=== PATIENT | male | born 1955 | race Two or more races ===

== ENCOUNTER 2024-02-09 06:24 | Day surgery (SDC) | payer OTHER, SELFPAY ==
[2024-02-01 09:30] VITALS: BMI 28.9
[2024-02-01 10:38] LABS: Hematocrit 44.3 % (39.0-52.0); Hemoglobin 14.8 g/dL (13.0-18.0); Mean Corp Hgb Conc. 33.4 g/dL (33.0-37.0); Mean Corpuscular Hgb 28.5 pg (27.0-31.0); Mean Corpuscular Volume 85.4 fL (80.0-94.0); Mean Platelet Volume 9.4 fL (7.4-10.4); Platelet Count 236 10^3/uL (130-400); Red Blood Cell Count 5.19 10^6/uL (4.70-6.10); Red Cell Dist. Width 14.4 % (11.5-14.5); White Blood Cell Count 9.5 10^3/uL (4.8-10.8)
[2024-02-01 10:55] LABS: Blood Urea Nitrogen 49 mg/dl (9-20); Carbon Dioxide 23 mmol/L (22-30); Chloride 104 mmol/L (98-107); Estimated Creatinine Clearance 30 ml/min; Glucose 141 mg/dl (70-99); Potassium 4.3 mmol/L (3.5-5.1); Sodium 142 mmol/L (135-145); eGFR 22.99
[2024-02-05 10:48] VITALS: BMI 28.9
--- NOTE | 2024-02-06 15:34 | PTCARENOTE ---
Shanna in Dr. Don's office made aware of Cr 2.9. Lab report faxed to her as requested.
[2024-02-09 12:08] VITALS: BMI 28.9
[2024-02-09 12:10] VITALS: BP 149/87
[2024-02-09 12:37] LABS: Glucose - Point of Care 145 mg/dl (70-99)
[2024-02-09 14:40] VITALS: BP 108/71; BP 149/87
[2024-02-09 14:45] VITALS: BP 104/73
[2024-02-09 14:47] LABS: Glucose - Point of Care 99 mg/dl (70-99)
[2024-02-09 15:00] VITALS: BP 107/74
[2024-02-09 15:05] VITALS: BP 109/76
[2024-02-09 15:20] VITALS: BP 132/78
== END 2024-02-09 15:36 | disposition home or self-care (01) ==
LOC: SDS 06:24
PROVIDERS: ATTENDING PHYSICIAN Podiatrist Foot & Ankle Surgery; FAMILY PHYSICIAN Family Medicine
DX: M20.5X2 Other deformities of toe(s) (acquired), left foot (principal)
CPT/HCPCS: 28288; 36415; 80048; 82962; 85027; C1713